=== PATIENT | male | born 1955 ===

== ENCOUNTER 2023-05-26 13:48 | Outpatient (AMB) | payer MEDICARE, SELFPAY ==
--- NOTE | 2023-05-26 13:55 | MHC.OFFWIV ---
Intake Vital Signs 05/26/23 13:58 BP 118/60 Blood Pressure Location Rt brachial Position Sitting Pulse 64 Pulse Source Pulse Oximeter Pulse Oximetry (%) 98 Oxygen Delivery Method Room Air Intake Visit Reasons: [employer] cat bite, infected? (lobby) Intake Note: Patient here for cat bite that happened a few days on right lower leg. pt states it is swollen and sore. Patient Tobacco Use Status: Never used Tobacco Allergies No Known Allergies Allergy (Verified 05/26/23 13:58) Do you need a note to return to daycare/school/sports/work: Yes HPI HPI Comments History of Present Illness Details 67-year-old male presents for cat bite. Patient was bitten by his cat 2 days ago in the leg into the wound swelling in pain over the last day in the leg. Denies fevers chills PFSH Social History Patient Tobacco Use Status: Never used Tobacco Review of Systems Const All systems reviewed & are unremarkable except as noted in HPI and below Denies fever(s), Denies headache(s) and Denies weakness Eyes Reports no additional complaints ENT Reports no additional complaints and Denies headache(s) Card Reports no additional complaints, Denies chest pain, Denies leg edema and Denies dyspnea Resp Denies cough and Denies dyspnea GI Denies abdominal pain, Denies nausea and Denies vomiting Denies dysuria and Denies urinary frequency Musc Reports no additional complaints Skin/Breast Details: Cap bite to the right lower leg Neuro Denies headache(s) and Denies weakness Psych Reports no additional complaints Endo Reports no additional complaints Physical Exam Vital Signs: Last Vital Signs Pulse 64 05/26/23 13:58 BP 118/60 05/26/23 13:58 Pulse Ox 98 05/26/23 13:58 Oxygen Delivery Method Room Air 05/26/23 13:58 Const General: cooperative, healthy appearing, comfortable, no acute distress and alert Skin Other: Two puncture wounds in the left lower extremity. Mild erythema over the wounds. No obvious swelling mild tenderness to palpation. Assessment & Plan Assessment & Plan (1) Cat bite: Code(s): W55.01XA - Bitten by cat, initial encounter Plan VSS. Exam patient presents alert and oriented no acute distress. Exam is notable for 2 puncture wounds in the lower right lower leg. Mild tenderness to palpation mild erythema no obvious swelling. Will prescribe Augmentin for 10 days. Discharge instructions, follow up and treatment are discussed with patient in my usual fashion. Alternatives in treatment are also discussed. The patient will return for worsening symptoms or as needed. Advised that any labs/imaging ordered will be followed up on and contact made if further treatment needed. Counseled that patient's condition may require further evaluation and/or treatment. Symptoms of concern for worsening disorder discussed in detail in my customary manner. Patient does verbalize understanding of the plan, there are no apparent barriers to communication. The patient is given the opportunity to ask questions and have them answered to his/her satisfaction Medications: New amoxicillin-pot clavulanate 875-125 mg 1 tab PO BID 20 tabs 0RF 10 days Patient Instructions: Your seen and evaluated in the walk-in clinic for your cat bite you have been prescribed Augmentin please take as directed.. If you experience fevers chills worsening pain swelling please report to the emergency department. Coding Level of Care Code New Pt Level 3 (73696) Diagnoses Cat bite W55.01XA
[2023-05-26 13:58] VITALS: BP 118/60; PULSE 64; O2SAT 98
== END 2023-05-26 14:18 | disposition home or self-care (01) ==
PROVIDERS: Visit Provider Physician Assistant
DX: S81.802A Unspecified open wound, left lower leg, initial encounter (principal)
CPT/HCPCS: 99203

== ENCOUNTER 2023-07-25 10:06 | Outpatient (AMB) | payer MEDICARE, SELFPAY ==
--- NOTE | 2023-07-25 10:48 | MHC.OFFWIV ---
Intake Vital Signs 07/25/23 11:02 Height 6 ft Weight 85.842 kg BMI 25.7 BP 128/64 Blood Pressure Location Lt brachial Position Sitting Pulse 68 Pulse Source Pulse Oximeter Temp 98 F Temp Source Oral Pulse Oximetry (%) 96 Oxygen Delivery Method Room Air Intake Visit Reasons: EP, sore throat ([phone]) Intake Note: Patient is here today for sore throat. Patient Tobacco Use Status: Never used Tobacco Allergies No Known Allergies Allergy (Verified 07/25/23 10:48) Do you need a note to return to daycare/school/sports/work: Yes HPI EP, sore throat ([phone]) HPI Details Patient presents with 3 days of worsening sore throat and ear fullness. He denies fever chills shortness of breath, productive cough or chest pain. No sick contacts at home however he has recently been to a large festival. He took rapid COVID antigen test at home which was negative. Denies GI symptoms. [facility] Social History Patient Tobacco Use Status: Never used Tobacco Review of Systems Const Reports as per HPI and Reports no additional complaints ENT Reports no additional complaints and Reports as per HPI Card Reports as per HPI and Reports no additional complaints Resp Reports as per HPI and Reports no additional complaints GI Reports as per HPI and Reports no additional complaints Neuro Reports no additional complaints and Reports as per HPI Physical Exam Vital Signs: Last Vital Signs Temp 98 F 07/25/23 11:02 Pulse 68 07/25/23 11:02 BP 128/64 07/25/23 11:02 Pulse Ox 96 07/25/23 11:02 Oxygen Delivery Method Room Air 07/25/23 11:02 BMI result Body Mass Index 25.7 Const General: cooperative, comfortable and no acute distress Orientation/consciousness: patient oriented x3 HEENT Head: Yes normal to inspection Ears: external ears normal, TM normal on the right (After cerumen Andie) and TM normal on the left (After cerumen removal) General nose exam: Abnormal mucous membranes and turbinates present erythematous and Nasal discharge present clear Face and sinus: Yes normal facial exam and Yes sinuses nontender Mouth: Normal oral and palatal mucosa present Throat: Yes posterior oropharynx abnormal (Erythema of the posterior oropharynx without exudate) and Yes tonsils absent Neck Other: Tender anterior cervical adenopathy bilaterally Neck: Yes full ROM and Yes supple Resp Effort & Inspection: normal respiratory effort Auscultation: clear to auscultation bilaterally Cardio Rate: regular rate Rhythm: regular rhythm Heart sounds: S1 normal heart sound present and S2 normal heart sound present Neuro General: patient oriented x3 Results AMB Rapid Strep AMB Rapid Strep Negative Last Edit by Demetrius Thakkar CMA on 07/25/23 11:12 Assessment & Plan Assessment & Plan (1) Pharyngitis: Code(s): J02.9 - Acute pharyngitis, unspecified Qualifiers: Pharyngitis/tonsillitis etiology: unspecified etiology Qualified Code(s): J02.9 - Acute pharyngitis, unspecified Plan: Advised patient on OTC self-care for viral pharyngitis. Viral swab collected today will report results as available. Rapid strep is negative return to clinic if symptoms worsen he becomes febrile or any concern or if symptoms do not improve over the next 3-5 days. Orders: Orders AMB Rapid Strep Screen Today Z13.9 - Encounter for screening, unspecified SARS-CoV2/FLU/RSV Today B34.9 - Viral infection, unspecified Coding Level of Care Code Est Pt Level 3 (29685) Diagnoses Pharyngitis, unspecified etiology J02.9 Pharyngitis/tonsillitis etiology: unspecified etiology
[2023-07-25 11:02] VITALS: BP 128/64; PULSE 68; TEMP 36.6; O2SAT 96; BMI 25.7
== END 2023-07-25 11:39 | disposition home or self-care (01) ==
PROVIDERS: Visit Provider Physician Assistant
DX: Z13.9 Encounter for screening, unspecified (principal); J02.9 Acute pharyngitis, unspecified
CPT/HCPCS: 87880; 99213

== ENCOUNTER 2023-07-25 12:43 | Outpatient (REF) | payer MEDICARE, SELFPAY ==
[2023-07-25 18:03] LABS: Influenza A PCR NEGATIVE (Negative); Influenza B PCR NEGATIVE (Negative); Resp Syncy Virus RNA Qual PCR NEGATIVE (Negative); SARS COV2 PCR INHOUSE NEGATIVE (Negative)
== END 2023-07-25 12:44 | disposition home or self-care (01) ==
LOC: HO.LAB 12:43
PROVIDERS: Visit Provider Physician Assistant
DX: Z11.52 Encounter for screening for COVID-19 (principal); Z20.822 Contact with and (suspected) exposure to COVID-19; B34.9 Viral infection, unspecified
CPT/HCPCS: 0241U

== ENCOUNTER 2023-09-06 10:05 | Outpatient (AMB) | payer MEDICARE, SELFPAY ==
--- NOTE | 2023-09-06 11:07 | MHC.OFFWIV ---
Intake Vital Signs 09/06/23 11:10 Height 6 ft Weight 190 lb BMI 25.8 BP 122/62 Blood Pressure Location Rt brachial Position Sitting Pulse 62 Pulse Source Pulse Oximeter Temp 97.2 F Temp Source Temporal Artery Scan Pulse Oximetry (%) 99 Oxygen Delivery Method Room Air Intake Visit Reasons: EP RT eye vision loss [phone] Intake Note: Pt is here c/o vision loss on his right eye. Pt states he has a big black spot that shifts around and is messing with his eye sight. vision: uncorrected both eyes: 20/25 right eye *: 20/50 left eye : 20/40 Patient Tobacco Use Status: Never used Tobacco Allergies No Known Allergies Allergy (Verified 09/11/23 16:42) Medication List - Last Reconciled 09/06/23 by Zafar Arteaga MD tamsulosin 0.4 mg PO DAILY HPI EP RT eye vision loss [phone] HPI Details 67-YEAR-OLD MALE PRESENTS TO THE OFFICE FOR A SICK VISIT Patient reports he is having intermittent vision loss in the right eye. Symptoms started yesterday. Feels there is a doc black spot in the right eye. No tearing or pain symptoms. PFSH Social History Patient Tobacco Use Status: Never used Tobacco Physical Exam Vital Signs: Last Vital Signs Temp 97.2 F 09/06/23 11:10 Pulse 62 09/06/23 11:10 BP 122/62 09/06/23 11:10 Pulse Ox 99 09/06/23 11:10 Oxygen Delivery Method Room Air 09/06/23 11:10 BMI result Body Mass Index 25.8 Const General: cooperative and healthy appearing Nutritional Appearance: well nourished Orientation/consciousness: patient oriented x3 Limitations: no limitations HEENT Head: Yes normal to inspection Eyes Other: Right eye: Fundus exam: As the pupil is not dilated the examination was suboptimal. The disc could not be visualized. General: appearance normal, both eyes and all related structures Neck Neck: Yes normal visual inspection Chest Chest palpation & inspection: normal palpation of entire chest wall Resp Effort & Inspection: normal respiratory effort Neuro General: patient oriented x3 Assessment & Plan Assessment & Plan (1) Visual loss, right eye: Code(s): H54.61 - Unqualified visual loss, right eye, normal vision left eye Plan: An emergency ophthalmology appointment was requested. Patient was given a point an appointment and he proceeded there directly from the office. Coding Level of Care Code Est Pt Level 4 (27168) Diagnoses Visual loss, right eye H54.61
[2023-09-06 11:10] VITALS: BP 122/62; PULSE 62; TEMP 36.2; O2SAT 99; BMI 25.8
== END 2023-09-06 13:41 | disposition home or self-care (01) ==
PROVIDERS: Visit Provider Internal Medicine
DX: H54.61 Unqualified visual loss, right eye, normal vision left eye (principal)
CPT/HCPCS: 99214